=== PATIENT | male | born 1970 | race Two or more races ===

== ENCOUNTER 2019-07-12 15:03 | Emergency (ER) | payer MEDICAID, SELFPAY ==
[~2019-07-12] VITALS: Ht 167.6 cm; Wt 68.9 kg
[~2019-07-12 15:03] MED LIST: NKM; RANITIDINE HCL150 MG ORAL
--- NOTE | 2019-07-12 15:11 | NUR ---
ED Nurse Note: pt ambulated to ed c/o left forearm laceration x 2 hours ago s/p cutting himself on accident with a knife when opening crab legs.
[2019-07-12 15:13] VITALS: BP 131/90
[2019-07-12] MEDS ORDERED: Tetanus/Diptheria/Pertussis IM ONE (15:15)
[2019-07-12] MEDS ORDERED: Lidocaine 1% 10mg/ml/Epi 0.005mg/ml 30ml vial INJ ONE ×2 (15:15→15:24)
--- NOTE | 2019-07-12 15:16 | Emergency Room Report ---
History of Present Illness General Chief Complaint: Laceration Source: Patient Present Illness HPI Disclaimer: Please note that this report is being documented using DRAGON technology. This can lead to erroneous entry secondary to incorrect interpretation by the dictating instrument. HPI: 49-year-old male presents for evaluation of a left forearm laceration. The patient was eating crab legs and while cracking when the crab legs slipped while holding a knife sustaining an accidental laceration to the ventral aspect of the left forearm. Bleeding was stopped by applying pressure. Has preserved range of motion and full functionality of all digits, wrist, elbow and shoulder. No other injury sustained. Cannot recall last tetanus. Reports only minimal pain. No other concerns at this time PMH: None reported PSH: None reported Allergies: None reported Social Hx: Denies drug or alcohol abuse Allergies: Coded Allergies: No Known Allergies (Unverified , 07/18/13) Nursing Documentation-PMH Past Medical History: No History, Except For Hx Cardiac Problems: No Hx Cancer: No Hx Gastrointestinal Problems: Yes Hx Neurological Problems: No Review of Systems All Other Systems: negative except mentioned in HPI Physical Exam Vital Signs Date Time Temp Pulse Resp B/P (MAP) Pulse Ox O2 Delivery O2 Flow Rate FiO2 07/12/19 15:07 98.6 98 20 131/90 (104) 95 Room Air General: Awake and alert, no acute distress HEENT: NC/AT. EOMI. Resp: Normal work of breathing Skin: 10 cm superficial laceration which does not extend into the musculature over the ventral aspect of the right forearm. Hemostatic, wound is linear and without any debris. MSK: Normal tone and bulk. Moving all extremities. No obvious deformity. Full flexion and extension in all digits of the left hand. Sensation is intact to light touch and two-point is carbonation over the radial ulnar aspect of all digits. Able to flex and extend the wrist, elbow and pronate and supinate at the elbow as well. Neuro: Awake and alert. Mentating appropriately. Procedures Laceration/Wound Repair Laceration/Wound Repair : Consent: Verbal Wound Location: upper extremity - Left forearm Wound's Depth, Shape: superficial, linear Wound Length (cm): 10 Wound Explored: clean Anesthesia: 1% Lidocaine Volume Anesthetic (ccs): 5 Wound Debrided: None Wound Repaired With: sutures, Steri-strips Suture Size/Type: 4:0, proline Number of Sutures: 7 Layer Closure?: Yes Deep Layer Suture Size/Type: 4:0, other - Vicryl Number Deep Layer Sutures: 4 Sterile Dressing Applied?: Yes Patient Tolerated: Well Complications: None Medical Decision Making Diagnostic Impression: Primary Impression: Laceration ER Course 49-year-old male presents for evaluation of accidental laceration over the left forearm. Wound was irrigated and cleaned thoroughly, tetanus was updated and it was closed with 4 simple interrupted deep 4-0 Vicryl sutures as well as 7 simple interrupted superficial 4-0 Prolene sutures with good approximation. No complications and no blood loss. He can follow-up with his PMD for suture removal in 7 days. Discussed reasons to return to the emergency department. He understands and agrees with this treatment plan. Last Vital Signs Date Time Temp Pulse Resp B/P (MAP) Pulse Ox O2 Delivery O2 Flow Rate FiO2 07/12/19 15:07 98.6 98 20 131/90 (104) 95 Room Air Disposition: HOME, SELF-CARE Condition: Improved Ben Zuleta MD Jul 12, 2019 15:16
--- NOTE | 2019-07-12 15:46 | NUR ---
ER DISCHARGE NOTE: Patient is cleared to be discharged per ERMD, pt is aox4, on room air, with stable vital signs. pt was given dc and prescription instructions, pt was able to verbalize understanding, pt id band removed. pt is able to ambulate with steady gait. pt took all belongings. forearm laceration repaired and dressed.
== END 2019-07-12 15:46 | disposition home or self-care (01) ==
LOC: EMR 15:38
DX: S51.812A Laceration without foreign body of left forearm, initial encounter (principal); W26.0XXA Contact with knife, initial encounter; Y92.9 Unspecified place or not applicable; Z23 Encounter for immunization
CPT/HCPCS: 12004; 90471; 90715; Z7502; 99283